=== PATIENT | female | born 2000 | race Caucasian/White ===

== ENCOUNTER 2023-10-16 19:58 | Emergency (ER) | payer SELFPAY ==
[2023-10-16 20:07] VITALS: BP 146/85; PULSE 105; O2SAT 99; BMI 36.4
--- NOTE | 2023-10-16 20:22 | ED.GENADUL1 ---
HPI HPI - General Adult General Chief complaint: Nausea/Vomiting/Diarrhea Stated complaint: VOMITTING, PINK DISCHARGE Time Seen by Provider: 10/16/23 20:01 Source: patient Mode of arrival: walk-in Limitations: language barrier History of Present Illness HPI narrative: Patient is a Korean-speaking 23-year-old female who presents to the emergency department with concern for nausea and vomiting over the last 5 days. She states she has had intermittent vomiting with no diarrhea or urinary symptoms. She states she feels lightheaded on standing but has had no sensation of spinning, no visual loss or upper respiratory symptoms. She denies headache, syncope. She has had no fevers. She denies abdominal pain or pelvic pain. She states she was also concerned because last night she noted a small amount of vaginal discharge that was pink-tinged and then brown-tinged. She is not concerned for . She denies any concern for STD exposure. She has no flank or back pain. Related Data Previous Rx's ?Medication ?Instructions ?Recorded cephalexin 500 mg capsule 500 mg PO Q8H 7 days #21 caps 10/16/23 ondansetron 4 mg disintegrating 4 mg PO Q6H PRN nausea and 10/16/23 tablet vomiting #12 tabs Allergies Allergy/AdvReac Type Severity Reaction Status Date / Time No Known Drug Allergies Allergy Verified 10/16/23 20:06 Opioid HPI Opioid Management Most Recent Opioid Data: No Data to Display Review of Systems ROS Constitutional Denies: fever or chills Ears, nose, mouth, and throat Denies: throat pain or nasal congestion Cardiovascular Denies: chest pain Respiratory Denies: shortness of breath or cough Gastrointestinal Reports: nausea and vomiting; Denies: abdominal pain or diarrhea Genitourinary Reports: vaginal discharge; Denies: painful urination, urinary frequency or pelvic pain Musculoskeletal Denies: back pain Integumentary/Breast Denies: rash Neurological Denies: headache Hematologic/Lymphatic Denies: easy bruising or easy bleeding Exam Narrative Exam Narrative: Gen.: Awake, alert, in no distress Head: Normocephalic, atraumatic ENT: Moist mucous membranes Respiratory: No respiratory distress, lungs clear bilaterally Cardio: Regular rate and rhythm Gastrointestinal: Abdomen is soft, nondistended and nontender to palpation Extremities: Moves extremities equally Psych: Normal mood and affect Neuro: No focal neuro deficit Skin: Warm, dry, intact Constitutional Vital Signs, click to edit/add: Last Vital Signs Pulse 105 H 10/16/23 20:07 Resp 16 10/16/23 20:07 BP 146/85 H 10/16/23 20:07 Pulse Ox 99 10/16/23 20:07 O2 Del Method Room Air 10/16/23 20:07 Course Vital Signs Vital signs: Vital Signs Pulse Rate 105 H 10/16/23 20:07 Respiratory Rate 16 10/16/23 20:07 Blood Pressure 146/85 H 10/16/23 20:07 Pulse Oximetry 99 10/16/23 20:07 Oxygen Delivery Method Room Air 10/16/23 20:07 Pulse Rate 105 H 10/16/23 20:07 Respiratory Rate 16 10/16/23 20:07 Blood Pressure 146/85 H 10/16/23 20:07 Pulse Oximetry 99 10/16/23 20:07 Oxygen Delivery Method Room Air 10/16/23 20:07 Medical Decision Making MDM Narrative Medical decision making narrative: Patient ambulates to the bathroom with a steady gait. Her initial interview, as well as my interview and physical exam were conducted with Korean speaking hospital plastic surgery coordinator over an iPad. Patient was treated with IV fluids, Zofran. She has no complaints of pain in the ER. Her lab studies show mild urinary tract infection with normal lactic acid. She does have ketones in her urine. She was encouraged to increase fluids, she is started on Keflex and Zofran for home. Follow-up with PCP and return to the ER if symptoms change or worsen. Medical Records Medical records reviewed: Yes I reviewed the patient's medical records Lab Data Lab results reviewed: Yes I reviewed the patient's lab results Labs: Lab Results 10/16/23 10/16/23 Range/Units 20:25 20:26 WBC 13.4 H (4.0-11.0) 10^3/uL RBC 4.54 (4.20-5.40) 10^6/uL Hgb 12.3 (12.0-16.0) g/dL Hct 38.3 (36.0-48.0) % MCV 84.4 (81.0-99.0) fL MCH 27.1 (26.7-34.0) pg MCHC 32.1 (29.9-35.2) g/dL RDW 14.3 (11.0-15.0) % Plt Count 342 (150-450) 10^3/uL MPV 11.0 (9.5-13.5) fL Neut % (Auto) 76.2 H (43.0-75.0) % Lymph % (Auto) 17.0 L (20.5-60.0) % [place] % (Auto) 5.9 (1.7-12.0) % Eos % (Auto) 0.4 L (0.9-7.0) % Baso % (Auto) 0.2 (0.2-2.0) % Neut # (Auto) 10.2 H (1.4-6.5) 10^3/uL Lymph # (Auto) 2.3 (1.2-3.8) 10^3/uL [place] # (Auto) 0.8 (0.3-0.8) 10^3/uL Eos # (Auto) 0.1 (0.0-0.7) 10^3/uL Baso # (Auto) 0.0 (0.0-0.1) 10^3/uL Abs Immat Gran (auto) 0.04 H (0.00-0.03) 10^3/uL Imm/Tot Granulo (auto) 0.3 (0.0-0.5) % Sodium 139 (136-145) mmol/L Potassium 3.5 (3.5-5.1) mmol/L Chloride 104 (98-107) mmol/L Carbon Dioxide 24.3 (21.0-32.0) mmol/L Anion Gap 14.2 BUN 8.0 (7.0-18.0) mg/dL Creatinine 0.86 (0.55-1.02) mg/dL Est GFR ( Amer) >60 (>=60) Est GFR (Non-Af Amer) >60 (>=60) BUN/Creatinine Ratio 9.3 Glucose 93 (74-106) mg/dL Lactate 0.9 (0.4-2.0) mmol/L Calcium 8.8 (8.5-10.1) mg/dL Total Bilirubin 0.4 (0.2-1.0) mg/dL AST 17 (15-37) U/L ALT 25 (14-59) U/L Alkaline Phosphatase 125 H (46-116) U/L Total Protein 7.1 (6.4-8.2) g/dL Albumin 3.6 (3.4-5.0) g/dL Globulin 3.5 g/dL Albumin/Globulin Ratio 1.0 Serum HCG, Qual Negative (NEGATIVE) Urine Color Lt. yellow (YELLOW) Urine Clarity Clear (CLEAR) Urine pH 6.0 (5.0-9.0) Ur Specific Joes 1.025 (1.005-1.025) Urine Protein Negative (NEG/TRACE) mg/dL Urine Glucose (UA) Negative (NEGATIVE) mg/dL Urine Ketones 15 A (NEGATIVE) mg/dL Urine Occult Blood Moderate A (NEGATIVE) Urine Nitrite Negative (NEGATIVE) Urine Bilirubin Negative (NEGATIVE) Urine Urobilinogen 1.0 (0.2-1.0) EU/dL Ur Leukocyte Esterase Small A (NEGATIVE) Urine RBC 10-20 A (0-2) #/HPF Urine WBC 10-20 A (NONE SEEN) #/HPF Ur Squamous Epith Cells Moderate A (NONE/RARE) #/LPF Urine Crystals None seen (None Seen) #/HPF Urine Bacteria None seen (NONE SEEN) #/HPF Urine Casts None seen (NONE SEEN) #/LPF Urine Mucus Moderate A (NONE SEEN) Ur Culture Indicated? Yes Discharge Plan Discharge Stand Alone Forms: Portal Instructions Chief Complaint: Nausea/Vomiting/Diarrhea Clinical Impression: Urinary tract infection, Dehydration Patient Disposition: Home, Self-Care Time of Disposition Decision: 21:03 Condition: Good Prescriptions / Home Meds: New cephalexin 500 mg capsule 500 mg PO Q8H 7 Days Qty: 21 0RF ondansetron 4 mg tablet,disintegrating 4 mg PO Q6H PRN (Reason: nausea and vomiting) Qty: 12 0RF Print Language: Korean Instructions: Urinary Tract Infection in Women (ED) Referrals: Physician,Non-Staff, [Primary Care Provider] - 1 week Discharge Date/Time: 10/16/23 21:23
[2023-10-16] MEDS: 0.9 % SODIUM CHLORIDE 1,000 ML 999 ML IV (20:33)
[2023-10-16] MEDS: ONDANSETRON PF 4 MG/2 ML VIAL IV (20:34)
[2023-10-16 20:35] LABS: Basophils Percent Auto 0.2 % (0.2-2.0); Eosinophils Absolute Auto 0.1 10^3/uL (0.0-0.7); Eosinophils Percent Auto 0.4 % (0.9-7.0); Hematocrit 38.3 % (36.0-48.0); Hemoglobin 12.3 g/dL (12.0-16.0); Immature Granulocytes Abs Auto 0.04 10^3/uL (0.00-0.03); Immature Granulocytes Pct Auto 0.3 % (0.0-0.5); Lymphocytes Absolute Auto 2.3 10^3/uL (1.2-3.8); Mean Corpuscular HGB Conc 32.1 g/dL (29.9-35.2); Mean Corpuscular Hemoglobin 27.1 pg (26.7-34.0); Mean Corpuscular Volume 84.4 fL (81.0-99.0); Monocytes Absolute Auto 0.8 10^3/uL (0.3-0.8); Monocytes Percent Auto 5.9 % (1.7-12.0); Neutrophils Absolute Auto 10.2 10^3/uL (1.4-6.5); Neutrophils Percent Auto 76.2 % (43.0-75.0); Platelet Count 342 10^3/uL (150-450); Red Blood Count 4.54 10^6/uL (4.20-5.40); Red Cell Distribution Width 14.3 % (11.0-15.0); White Blood Count 13.4 10^3/uL (4.0-11.0)
[2023-10-16 20:36] LABS: Bilirubin Urine NEGATIVE (NEGATIVE); Blood Urine MODERATE (NEGATIVE); Clarity Urine CLEAR (CLEAR); Color Urine LT. YELLOW (YELLOW); Glucose Urine UA NEGATIVE (NEGATIVE); Ketones Urine 15 mg/dL (NEGATIVE); Leukocyte Esterase Urine SMALL (NEGATIVE); Nitrite Urine NEGATIVE (NEGATIVE); Protein Urine NEGATIVE (NEG/TRACE); Specific Gravity Urine 1.025 (1.005-1.025)
[2023-10-16 20:38] LABS: Urine Microscopic Indicated YES
[2023-10-16 20:44] LABS: Bacteria Urine NONE SEEN #/HPF (NONE SEEN); Cast Seen? NONE SEEN #/LPF (NONE SEEN); Crystals Seen? None Seen #/HPF (None Seen); Mucus Urine MODERATE (NONE SEEN); Squamous Epithelial Cell Urine MODERATE #/LPF (NONE/RARE); Urine Culture Indicated YES
[2023-10-16 20:45] LABS: HCG Qualitative NEGATIVE (NEGATIVE); Internal Control Within Normal Limits
[2023-10-16 20:53] LABS: Lactate/Lactic Acid 0.9 mmol/L (0.4-2.0)
[2023-10-16 20:59] LABS: Alanine Aminotransferase 25 U/L (14-59); Albumin Level 3.6 g/dL (3.4-5.0); Alkaline Phosphatase 125 U/L (46-116); Anion Gap 14.2; Aspartate Amino Transferase 17 U/L (15-37); BUN Creatinine Ratio 9.3; Bilirubin Total 0.4 mg/dL (0.2-1.0); Calcium 8.8 mg/dL (8.5-10.1); Carbon Dioxide 24.3 mmol/L (21.0-32.0); Chloride 104 mmol/L (98-107); Estimated GFR (African America >60 (>=60); Estimated GFR (Non-African Ame >60 (>=60); Globulin 3.5 g/dL; Glucose 93 mg/dL (74-106); Potassium 3.5 mmol/L (3.5-5.1); Sodium 139 mmol/L (136-145); Total Protein 7.1 g/dL (6.4-8.2)
[2023-10-16] MEDS: CEPHALEXIN 500 MG CAPSULE PO (21:13)
[2023-10-20 20:08] LABS: Neisseria gonorrhoeae, NAA Negative (Negative)
== END 2023-10-16 21:23 | disposition home or self-care (01) ==
PROVIDERS: Physician Assistant; Emergency Provider Internal Medicine
DX: E86.0 Dehydration (principal); N39.0 Urinary tract infection, site not specified
CPT/HCPCS: 36415; 80053; 81001; 83605; 84703; 85025; 87086; 87491; 87591; 96361; 96374; 99284; J2405

== ENCOUNTER 2023-11-29 15:06 | Emergency (ER) | payer SELFPAY ==
[2023-11-29 15:16] VITALS: BP 139/85; PULSE 69; TEMP 36.8; O2SAT 98; BMI 29.9
[2023-11-29] MEDS: ADACEL DIPH,PERTUSS(ACELL),TET VAC/PF 0.5 ML ADULT SYRINGE IM (15:35)
--- NOTE | 2023-11-29 15:42 | ED_ITS ---
HPI - Female Genitourinary General Chief complaint: Urogenital-Female Stated complaint: UTI, Nausea/Vomiting, Laceration to hand Time Seen by Provider: 11/29/23 15:19 Mode of arrival: walk-in Limitations: no limitations History of Present Illness HPI Narrative: 23-year-old female presented to the emergency department for dysuria. She believes she has a UTI and she is worried she might be as well. She also cut the palm of her left hand cutting chicken at her home today with a kitchen knife. It has been more than 10 years since she has had a tetanus shot. No weakness or numbness. Related Data Previous Rx's ?Medication ?Instructions ?Recorded cephalexin 500 mg capsule 500 mg PO TID 7 days #21 caps 11/29/23 Allergies Allergy/AdvReac Type Severity Reaction Status Date / Time No Known Drug Allergies Allergy Verified 10/16/23 20:06 Review of Systems ROS Narrative A ten point review of systems is negative except as noted above. Exam Narrative Exam Narrative: Nurses note and vital signs reviewed and patient is not hypoxic. General: The patient appears well and in no apparent distress. Patient is resting comfortably on cart. Skin: Warm, dry, no pallor noted. There is no rash noted. Head: Normocephalic, atraumatic Eye: Normal conjunctiva, no drainage Ears, Nose, Mouth, and Throat: oral mucosa is moist. Nares patent. Cardiovascular: Regular Rate and Rhythm Respiratory: Patient is in no distress, no accessory muscle use, lungs are clear to auscultation, no wheezing, rales or rhonchi Back: non-tender GI: Soft and nontender Musculoskeletal: There is a small skin avulsion on the palm of the left hand. There is no laceration. Fingers have full range of motion. No other wounds are present. Neurological: Awake and alert. Fingers have full range of motion. Psychiatric: Cooperative Constitutional Vital Signs, click to edit/add: Last Vital Signs Temp 98.3 F 11/29/23 15:16 Pulse 69 11/29/23 15:16 Resp 16 11/29/23 15:16 BP 139/85 11/29/23 15:16 Pulse Ox 98 11/29/23 15:16 O2 Del Method Room Air 11/29/23 15:16 Course Vital Signs Vital signs: Vital Signs Temperature 98.3 F 11/29/23 15:16 Pulse Rate 69 11/29/23 15:16 Respiratory Rate 16 11/29/23 15:16 Blood Pressure 139/85 11/29/23 15:16 Pulse Oximetry 98 11/29/23 15:16 Oxygen Delivery Method Room Air 11/29/23 15:16 Temperature 98.3 F 11/29/23 15:16 Pulse Rate 69 11/29/23 15:16 Respiratory Rate 16 11/29/23 15:16 Blood Pressure 139/85 11/29/23 15:16 Pulse Oximetry 98 11/29/23 15:16 Oxygen Delivery Method Room Air 11/29/23 15:16 MDM - Female Genitourinary MDM Narrative Medical decision making narrative: Urinary tract infection is identified and she was started on Keflex here and prescribed same. She is referred to obstetrics for appropriate follow-up since she is . Treatment diagnosis and follow-up were discussed with the patient Differential Diagnosis Differential diagnosis: Likely urinary tract infection and other () Lab Data Attestation: I reviewed the patient's lab results. Labs: Lab Results 11/29/23 Range/Units 15:15 Urine Color Lt. yellow (YELLOW) Urine Clarity Clear (CLEAR) Urine pH 6.0 (5.0-9.0) Ur Specific [place] 1.025 (1.005-1.025) Urine Protein Trace (NEG/TRACE) mg/dL Urine Glucose (UA) Negative (NEGATIVE) mg/dL Urine Ketones Negative (NEGATIVE) mg/dL Urine Occult Blood Trace-i (NEGATIVE) Urine Nitrite Negative (NEGATIVE) Urine Bilirubin Negative (NEGATIVE) Urine Urobilinogen 1.0 (0.2-1.0) EU/dL Ur Leukocyte Esterase Moderate A (NEGATIVE) Urine RBC 0-2 (0-2) #/HPF Urine WBC >100 A (NONE SEEN) #/HPF Ur Squamous Epith Cells Many A (NONE/RARE) #/LPF Urine Crystals None seen (None Seen) #/HPF Urine Bacteria Large A (NONE SEEN) #/HPF Urine Casts None seen (NONE SEEN) #/LPF Urine Mucus None seen (NONE SEEN) Urine HCG, Qual Positive A (NEGATIVE) Discharge Plan Discharge Stand Alone Forms: Portal Instructions Chief Complaint: Urogenital-Female Clinical Impression: Urinary tract infection, Patient Disposition: Home, Self-Care Time of Disposition Decision: 16:28 Condition: Good Mode of Transportation: Private Vehicle Prescriptions / Home Meds: New cephalexin 500 mg capsule 500 mg PO TID 7 Days Qty: 21 0RF Print Language: [place] Islander Instructions: (ED), Urinary Tract Infection in (ED) Referrals: Physician,Non-Staff, MD [Primary Care Provider] - 1 week
[2023-11-29 16:11] LABS: Bilirubin Urine NEGATIVE (NEGATIVE); Blood Urine TRACE-I (NEGATIVE); Clarity Urine CLEAR (CLEAR); Color Urine LT. YELLOW (YELLOW); Glucose Urine UA NEGATIVE (NEGATIVE); Ketones Urine NEGATIVE (NEGATIVE); Leukocyte Esterase Urine MODERATE (NEGATIVE); Nitrite Urine NEGATIVE (NEGATIVE); Protein Urine TRACE mg/dL (NEG/TRACE); Specific Gravity Urine 1.025 (1.005-1.025)
[2023-11-29 16:23] LABS: Bacteria Urine LARGE #/HPF (NONE SEEN); HCG Qualitative Urine* POSITIVE (NEGATIVE); Internal Control Within Normal Limits; WBC Urine >100 #/HPF (NONE SEEN)
[2023-11-29 16:25] LABS: Cast Seen? NONE SEEN #/LPF (NONE SEEN); Crystals Seen? None Seen #/HPF (None Seen); Mucus Urine NONE SEEN (NONE SEEN); RBC Urine 0-2 #/HPF (0-2); Squamous Epithelial Cell Urine MANY #/LPF (NONE/RARE)
[2023-11-29] MEDS: CEPHALEXIN 500 MG CAPSULE PO (17:01)
== END 2023-11-29 17:03 | disposition home or self-care (01) ==
PROVIDERS: Emergency Provider Emergency Medicine
DX: O23.40 Unspecified infection of urinary tract in pregnancy, unspecified trimester (principal); N39.0 Urinary tract infection, site not specified; Z3A.00 Weeks of gestation of pregnancy not specified; Z23 Encounter for immunization
CPT/HCPCS: 81001; 84703; 90471; 90715; 99284

== ENCOUNTER 2023-12-23 04:40 | Emergency (ER) | payer OTHER, SELFPAY ==
[2023-12-23 04:36] VITALS: BP 124/70; PULSE 76; O2SAT 99
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
== END 2023-12-23 06:48 | disposition home or self-care (01) ==
PROVIDERS: Emergency Provider Emergency Medicine
DX: O9A.211 Injury, poisoning and certain other consequences of external causes complicating pregnancy, first trimester (principal); S30.1XXA Contusion of abdominal wall, initial encounter; Z3A.09 9 weeks gestation of pregnancy; Y04.8XXA Assault by other bodily force, initial encounter
CPT/HCPCS: 76801; 99284

== ENCOUNTER 2024-01-01 09:05 | Outpatient (OUT) | payer OTHER, SELFPAY ==
--- NOTE | 2024-01-01 09:10 | US_ITS ---
[address] [address] Patient Name: SUJATHA RAMIREZ MRN: [id number] date: 2000 Sex: F Assigned Patient Location: US Current Patient Location: Accession/Order Number: [id number] Exam Date: 01/01/2024 09:20 Report Date: 01/05/2024 04:21 At the request of: LAMINE PEPPER Procedure: US OB transvaginal EXAMINATION: US OB transvaginal HISTORY: Missed Menses N92.6 COMPARISON: Ultrasound OB 12/23/2023 FINDINGS: GESTATIONAL SAC: Present and normal appearing. YOLK SAC: Absent. POLE: Present and normal appearing. CARDIAC: 163 bpm UTERUS: Normal size and appearance. OVARIES: Right: Normal. Left: Not seen. CERVIX: Not measured. CUL-DE-SAC: Normal. OTHER: None. AGE BY LMP: 10 weeks 6 days MATT BY LMP: 07/23/2024 AGE BY US CRL: 11 weeks 2 days MATT BY US CRL: 07/20/2024 US/US OB transvaginal IMPRESSION: 1. Single live intrauterine . Electronically authenticated by: ANGELLA WALDEN Date: 01/05/2024 04:21
== END 2024-01-01 09:06 | disposition home or self-care (01) ==
LOC: US 09:05
PROVIDERS: Visit Provider Obstetrics & Gynecology
DX: Z34.91 Encounter for supervision of normal pregnancy, unspecified, first trimester (principal); Z3A.11 11 weeks gestation of pregnancy; N92.6 Irregular menstruation, unspecified
CPT/HCPCS: 76817

== ENCOUNTER 2024-01-08 09:27 | Outpatient (OUT) | payer OTHER, SELFPAY ==
[2024-01-08 10:28] LABS: BOX Test Sent Out Y
[2024-01-08 10:33] LABS: Basophils Percent Auto 0.4 % (0.2-2.0); Eosinophils Absolute Auto 0.1 10^3/uL (0.0-0.7); Eosinophils Percent Auto 1.1 % (0.9-7.0); Hematocrit 38.3 % (36.0-48.0); Hemoglobin 12.7 g/dL (12.0-16.0); Immature Granulocytes Abs Auto 0.02 10^3/uL (0.00-0.03); Immature Granulocytes Pct Auto 0.3 % (0.0-0.5); Lymphocytes Absolute Auto 1.6 10^3/uL (1.2-3.8); Lymphocytes Percent Auto 20.3 % (20.5-60.0); Mean Corpuscular HGB Conc 33.2 g/dL (29.9-35.2); Mean Corpuscular Volume 84.4 fL (81.0-99.0); Mean Platelet Volume 11.4 fL (9.5-13.5); Monocytes Absolute Auto 0.4 10^3/uL (0.3-0.8); Monocytes Percent Auto 5.3 % (1.7-12.0); Neutrophils Absolute Auto 5.8 10^3/uL (1.4-6.5); Neutrophils Percent Auto 72.6 % (43.0-75.0); Platelet Count 251 10^3/uL (150-450); Red Blood Count 4.54 10^6/uL (4.20-5.40); Red Cell Distribution Width 14.6 % (11.0-15.0)
[2024-01-08 11:05] LABS: Estimated Average Glucose 97 mg/dL
[2024-01-09 06:13] LABS: HCV Ab Non Reactive (Non Reactive)
[2024-01-09 07:12] LABS: HIV Ab/p24 Ag Screen Non Reactive (Non Reactive); Rubella Antibodies, IgG 1.77 index (Immune >0.99)
[2024-01-09 08:12] LABS: HBsAg Screen Negative (Negative)
[2024-01-09 12:09] LABS: Rapid Plasma Reagin, Quant Non Reactive titer (NonRea<1:1)
== END 2024-01-08 09:28 | disposition home or self-care (01) ==
LOC: LAB 09:30
PROVIDERS: Visit Provider Obstetrics & Gynecology
DX: N92.6 Irregular menstruation, unspecified (principal); Z36.0 Encounter for antenatal screening for chromosomal anomalies
CPT/HCPCS: 36415; 83036; 85025; 86592; 86762; 86803; 86850; 86900; 86901; 87086; 87340; 87389

== ENCOUNTER 2024-01-28 19:33 | Outpatient (REF) | payer OTHER, SELFPAY | END 2024-01-28 19:34 | disposition home or self-care (01) | LOC: LAB 19:33 | PROVIDERS: Visit Provider Obstetrics & Gynecology | DX: Z01.419 Encounter for gynecological examination (general) (routine) without abnormal findings (principal) | CPT/HCPCS: 88175 ==

== ENCOUNTER 2024-02-22 13:20 | Emergency (ER) | payer OTHER, SELFPAY ==
[2024-02-22 13:23] VITALS: BP 126/75; PULSE 82; TEMP 36.7; O2SAT 99; BMI 24.9
--- NOTE | 2024-02-22 13:38 | ED_ITS ---
HPI HPI - General Adult General Chief complaint: Skin/Abscess/Foreign Body Stated complaint: LOWER EXTREMITY INJURY, LEFT Time Seen by Provider: 02/22/24 13:22 Source: patient Mode of arrival: walk-in Limitations: language barrier History of Present Illness HPI narrative: Is a 23-year-old female at 17 weeks who presents to the ER for a laceration to the left posterior leg that occurred last night. She states she caught herself with a blade. She is noted to have a small superficial laceration that is gapped approximately 1 cm on the posterior left calf. There is no deep subcutaneous tissue exposure. No active bleeding. No other associated injury or drainage. Patient is unaware of her last tetanus although she was noted to have been to this emergency department 3 months ago and her tetanus was updated at that time. No medications prior to arrival. The laceration occurred approximately 16 hours ago. Related Data Previous Rx's ?Medication ?Instructions ?Recorded cephalexin 500 mg capsule 500 mg PO TID 7 days #21 caps 11/29/23 cephalexin 500 mg capsule 500 mg PO Q8H 7 days #21 caps 02/22/24 Allergies Allergy/AdvReac Type Severity Reaction Status Date / Time No Known Drug Allergies Allergy Verified 12/23/23 04:39 Opioid HPI Opioid Management Most Recent Opioid Data: No Data to Display Review of Systems ROS Constitutional Denies: fever or chills Ears, nose, mouth, and throat Denies: throat pain Respiratory Denies: shortness of breath Gastrointestinal Denies: nausea or vomiting Integumentary/Breast Denies: rash, redness or skin pain Hematologic/Lymphatic Denies: easy bruising or easy bleeding Exam Narrative Exam Narrative: Gen.: Awake, alert, in no distress Head: Normocephalic, atraumatic ENT: Moist mucous membranes Respiratory: No respiratory distress Extremities: Moves extremities equally, 1.5 x 1 cm superficial laceration to the left posterior calf. No deep subcutaneous tissue or active bleeding. Psych: Normal mood and affect Neuro: No focal neuro deficit Skin: Warm, dry Constitutional Vital Signs, click to edit/add: Last Vital Signs Temp 98.1 F 02/22/24 13:23 Pulse 82 02/22/24 13:23 Resp 16 02/22/24 13:23 BP 126/75 02/22/24 13:23 Pulse Ox 99 02/22/24 13:23 O2 Del Method Room Air 02/22/24 13:23 Course Vital Signs Vital signs: Vital Signs Temperature 98.1 F 02/22/24 13:23 Pulse Rate 82 02/22/24 13:23 Respiratory Rate 16 02/22/24 13:23 Blood Pressure 126/75 02/22/24 13:23 Pulse Oximetry 99 02/22/24 13:23 Oxygen Delivery Method Room Air 02/22/24 13:23 Temperature 98.1 F 02/22/24 13:23 Pulse Rate 82 02/22/24 13:23 Respiratory Rate 16 02/22/24 13:23 Blood Pressure 126/75 02/22/24 13:23 Pulse Oximetry 99 02/22/24 13:23 Oxygen Delivery Method Room Air 02/22/24 13:23 Medical Decision Making MDM Narrative Medical decision making narrative: Laceration is 16 hours old, no deep laceration requiring sutures, patient was made aware that we will not suture the laceration but she will be placed on antibiotics. The area was cleansed and dressed with bacitracin and she remains neurovascularly intact. She has no concerns. Her tetanus was updated several months ago. Her history, physical and discharge instructions were obtained with Libyan-speaking interpreting service. Follow-up with PCP and return to the ER if symptoms change or worsen SUPERVISED APC VISIT, PHYSICIAN ATTESTATION: Based on the medical record the care appears appropriate. ? Medical Records Medical records reviewed: Yes I reviewed the patient's medical records Discharge Plan Discharge Chief Complaint: Skin/Abscess/Foreign Body Clinical Impression: Laceration of left leg Patient Disposition: Home, Self-Care Time of Disposition Decision: 13:36 Condition: Good Mode of Transportation: Private Vehicle Prescriptions / Home Meds: New cephalexin 500 mg capsule 500 mg PO Q8H 7 Days Qty: 21 0RF No Action cephalexin 500 mg capsule 500 mg PO TID 7 Days Qty: 21 0RF Print Language: Libyan Instructions: Laceration Without Closure (ED) Referrals: Physician,Non-Staff, MD [Primary Care Provider] - 1 week Discharge Date/Time: 02/22/24 13:48
[2024-02-22] MEDS: BACITRACIN 0.9 GM PACKET 1 PACKET TOPICAL (13:47)
== END 2024-02-22 13:48 | disposition home or self-care (01) ==
PROVIDERS: Emergency Provider Emergency Medicine
DX: S81.812A Laceration without foreign body, left lower leg, initial encounter (principal); W26.8XXA Contact with other sharp object(s), not elsewhere classified, initial encounter
CPT/HCPCS: 99283

== ENCOUNTER 2024-04-05 09:43 | Outpatient (OUT) | payer OTHER, SELFPAY ==
[2024-04-05 11:26] LABS: Basophils Percent Auto 0.2 % (0.2-2.0); Eosinophils Absolute Auto 0.2 10^3/uL (0.0-0.7); Eosinophils Percent Auto 1.5 % (0.9-7.0); Hematocrit 35.5 % (36.0-48.0); Hemoglobin 11.9 g/dL (12.0-16.0); Immature Granulocytes Abs Auto 0.04 10^3/uL (0.00-0.03); Immature Granulocytes Pct Auto 0.3 % (0.0-0.5); Lymphocytes Absolute Auto 1.5 10^3/uL (1.2-3.8); Mean Corpuscular HGB Conc 33.5 g/dL (29.9-35.2); Mean Corpuscular Hemoglobin 29.8 pg (26.7-34.0); Monocytes Absolute Auto 0.7 10^3/uL (0.3-0.8); Monocytes Percent Auto 5.7 % (1.7-12.0); Neutrophils Absolute Auto 9.2 10^3/uL (1.4-6.5); Neutrophils Percent Auto 79.3 % (43.0-75.0); Platelet Count 229 10^3/uL (150-450); Red Blood Count 3.99 10^6/uL (4.20-5.40); Red Cell Distribution Width 13.6 % (11.0-15.0); White Blood Count 11.6 10^3/uL (4.0-11.0)
[2024-04-05 12:01] LABS: Glucose 1 Hour 93 mg/dL (<130)
== END 2024-04-05 09:44 | disposition home or self-care (01) ==
PROVIDERS: Visit Provider Obstetrics & Gynecology
DX: Z13.1 Encounter for screening for diabetes mellitus (principal)
CPT/HCPCS: 36415; 82950; 85025

== ENCOUNTER 2024-04-05 10:22 | Outpatient (OUT) | payer OTHER, SELFPAY ==
--- NOTE | 2024-04-05 | US_ITS ---
[address] [address] Patient Name: SUJATHA RAMIREZ MRN: [id number] date: 2000 Sex: F Assigned Patient Location: US Current Patient Location: US Accession/Order Number: [id number] Exam Date: 04/05/2024 10:26 Report Date: 04/05/2024 12:36 At the request of: ROSA VIDAL Procedure: US OB cervical length EXAMINATION: US OB anatomy, US OB cervical length HISTORY: Screening, for anatomic survey, Z36.89 COMPARISON: No relevant comparison available. TECHNIQUE: Transabdominal sonographic examination was performed for obstetrical and evaluation. FINDINGS: Number: 1 Heart Rate: 139.18 bpm H.B. /min Amniotic Fluid Volume: Subjectively normal Placental Location: POSTERIOR, grade 0, placental edge 3.6 cm from the cervical os Cervix Length: 4.29 cm , closed Normal anatomy: Lateral ventricles, cerebellum, posterior fossa, nose, lips, orbits, 4 chamber heart, rvot, lvot, diaphragm, stomach, kidneys, abd cord insertion, bladder, umbilical arteries, 3 vessel cord, spine, extremities BIOMETRY: BPD: 6.04 cm; 24w4d; 66.40 % HC: 22.64 cm; 24w5d; 57.80 % AC: 20.76 cm; 25w2d; 80.80 % FL: 4.33 cm; 24w1d; 42.90 % EFW:736.67 g; 78.40 %, 1 lb 10 oz FL/AC: 20.84 FL/BPD: 71.58 HC/AC: 1.09 GESTATIONAL AGE: Age by EDC: 24w0d MATT by EDC: 2024-07-26 Age by current US: 24w5d MATT by current US: 2024-07-21 US/US OB cervical length IMPRESSION: Normal anatomy scan *Reference: [facility] Practice Guideline for the performance of Obstetric Ultrasound Examinations, February 01, 2007. Electronically authenticated by: MELINDA TAYLOR Date: 04/05/2024 12:36
--- NOTE | 2024-04-05 10:25 | US_ITS ---
[address] [address] Patient Name: SUJATHA RAMIREZ MRN: [id number] date: 2000 Sex: F Assigned Patient Location: US Current Patient Location: US Accession/Order Number: [id number] Exam Date: 04/05/2024 10:26 Report Date: 04/05/2024 12:36 At the request of: ROSA VIDAL Procedure: US OB anatomy EXAMINATION: US OB anatomy, US OB cervical length HISTORY: Screening, for anatomic survey, Z36.89 COMPARISON: No relevant comparison available. TECHNIQUE: Transabdominal sonographic examination was performed for obstetrical and evaluation. FINDINGS: Number: 1 Heart Rate: 139.18 bpm H.B. /min Amniotic Fluid Volume: Subjectively normal Placental Location: POSTERIOR, grade 0, placental edge 3.6 cm from the cervical os Cervix Length: 4.29 cm , closed Normal anatomy: Lateral ventricles, cerebellum, posterior fossa, nose, lips, orbits, 4 chamber heart, rvot, lvot, diaphragm, stomach, kidneys, abd cord insertion, bladder, umbilical arteries, 3 vessel cord, spine, extremities BIOMETRY: BPD: 6.04 cm; 24w4d; 66.40 % HC: 22.64 cm; 24w5d; 57.80 % AC: 20.76 cm; 25w2d; 80.80 % FL: 4.33 cm; 24w1d; 42.90 % EFW:736.67 g; 78.40 %, 1 lb 10 oz FL/AC: 20.84 FL/BPD: 71.58 HC/AC: 1.09 GESTATIONAL AGE: Age by EDC: 24w0d MATT by EDC: 2024-07-26 Age by current US: 24w5d MATT by current US: 2024-07-21 US/US OB anatomy IMPRESSION: Normal anatomy scan *Reference: [facility] Practice Guideline for the performance of Obstetric Ultrasound Examinations, February 01, 2007. Electronically authenticated by: MELINDA TAYLOR Date: 04/05/2024 12:36
== END 2024-04-05 10:23 | disposition home or self-care (01) ==
LOC: US 10:22
PROVIDERS: Visit Provider Physician Assistant
DX: Z36.89 Encounter for other specified antenatal screening (principal); Z3A.24 24 weeks gestation of pregnancy
CPT/HCPCS: 36415; 76805; 76817; 82950; 85025

== ENCOUNTER 2024-05-06 17:20 | Observation (INO) | payer SELFPAY ==
[2024-05-06 18:26] LABS: Bilirubin Urine NEGATIVE (NEGATIVE); Blood Urine NEGATIVE (NEGATIVE); Clarity Urine CLEAR (CLEAR); Color Urine LT. YELLOW (YELLOW); Glucose Urine UA NEGATIVE (NEGATIVE); Ketones Urine NEGATIVE (NEGATIVE); Leukocyte Esterase Urine MODERATE (NEGATIVE); Nitrite Urine NEGATIVE (NEGATIVE); Protein Urine NEGATIVE (NEG/TRACE); Specific Gravity Urine 1.015 (1.005-1.025)
[2024-05-06 18:28] LABS: Urine Microscopic Indicated YES
--- NOTE | 2024-05-06 18:38 | US_ITS ---
[place] [address] Patient Name: SUJATHA RAMIREZ MRN: [id number] date: 2000 Sex: F Assigned Patient Location: [facility] Current Patient Location: Accession/Order Number: [id number] Exam Date: 05/06/2024 18:47 Report Date: 05/06/2024 21:15 At the request of: LAMINE PEPPER Procedure: US OB placenta EXAMINATION: US OB placenta, US OB cervical length HISTORY: cramping ; discharge COMPARISON: Ultrasound OB anatomy 04/05/2024 FINDINGS: PLACENTA: Posterior, grade 0. No abruption or subchorionic hematoma. CERVIX LENGTH: 3.1 cm; closed. HEART RATE: 138 bpm OTHER: None. US/US OB placenta IMPRESSION: 1. Single live intrauterine . 2. Closed cervix 3.1 cm in length. 3. Unremarkable placenta. Electronically authenticated by: ANGELLA WALDEN Date: 05/06/2024 21:15
--- NOTE | 2024-05-06 18:38 | US_ITS ---
[place] [address] Patient Name: SUJATHA RAMIREZ MRN: [id number] date: 2000 Sex: F Assigned Patient Location: [facility] Current Patient Location: Accession/Order Number: [id number] Exam Date: 05/06/2024 18:47 Report Date: 05/06/2024 21:15 At the request of: LAMINE PEPPER Procedure: US OB cervical length EXAMINATION: US OB placenta, US OB cervical length HISTORY: cramping ; discharge COMPARISON: Ultrasound OB anatomy 04/05/2024 FINDINGS: PLACENTA: Posterior, grade 0. No abruption or subchorionic hematoma. CERVIX LENGTH: 3.1 cm; closed. HEART RATE: 138 bpm OTHER: None. US/US OB cervical length IMPRESSION: 1. Single live intrauterine . 2. Closed cervix 3.1 cm in length. 3. Unremarkable placenta. Electronically authenticated by: ANGELLA WALDEN Date: 05/06/2024 21:15
[2024-05-06 18:42] LABS: Bacteria Urine SMALL #/HPF (NONE SEEN); Cast Seen? NONE SEEN #/LPF (NONE SEEN); Crystals Seen? None Seen #/HPF (None Seen); Mucus Urine TRACE (NONE SEEN); RBC Urine 0-2 #/HPF (0-2); Squamous Epithelial Cell Urine MODERATE #/LPF (NONE/RARE); Urine Culture Indicated YES
[2024-05-06 19:51] VITALS: BP 111/59; PULSE 77
[2024-05-10 08:17] LABS: BOX Test Reference Lab FIRELANDS
== END 2024-05-06 20:40 | disposition home or self-care (01) ==
PROVIDERS: Admitting Provider Obstetrics & Gynecology; Visit Provider Obstetrics & Gynecology
DX: O26.893 Other specified pregnancy related conditions, third trimester (principal); R10.9 Unspecified abdominal pain; N89.8 Other specified noninflammatory disorders of vagina; Z3A.28 28 weeks gestation of pregnancy
CPT/HCPCS: 36415; 76815; 76817; 81001; 84112; 87086; G0378; G0379

== ENCOUNTER 2024-06-29 14:05 | Outpatient (OUT) | payer OTHER, SELFPAY ==
--- NOTE | 2024-06-29 14:08 | US_ITS ---
[address] [address] Patient Name: SUJATHA RAMIREZ MRN: [id number] date: 2000 Sex: F Assigned Patient Location: US Current Patient Location: US Accession/Order Number: [id number] Exam Date: 06/29/2024 18:59 Report Date: 06/29/2024 19:02 At the request of: ROSA VIDAL Procedure: US OB growth Exam: Growth ultrasound. Reason for exam: Excessive growth. COMPARISON: Anatomy ultrasound 04/05/2024. TECHNIQUE: Transabdominal imaging of the gravid uterus was obtained. FINDINGS: Single live intrauterine is noted measuring 37 weeks 0 days by anatomic measurements. Appropriate growth by dating. position is cephalic. heart rate is 132 bpm. Estimated weight is 3009 g. DANK is normal at 14.06 cm. US/US OB growth IMPRESSION: Single live intrauterine 37 weeks 0 days by anatomic measurements. Appropriate growth by dating. Impression dictated by: Satnam Bergman Jr., D.O.06/29/2024 7:02 PM Dictation Location: [place] [address] Electronically authenticated by: [id number] Y Date: 06/29/2024 19:02
== END 2024-06-29 14:06 | disposition home or self-care (01) ==
LOC: US 14:05
PROVIDERS: Visit Provider Physician Assistant
DX: O36.63X0 Maternal care for excessive fetal growth, third trimester, not applicable or unspecified (principal); Z3A.37 37 weeks gestation of pregnancy
CPT/HCPCS: 76816

== ENCOUNTER 2024-07-04 14:37 | Outpatient (REF) | payer OTHER, SELFPAY | END 2024-07-04 14:38 | disposition home or self-care (01) | LOC: LAB 14:37 | PROVIDERS: Visit Provider Obstetrics & Gynecology | DX: Z34.93 Encounter for supervision of normal pregnancy, unspecified, third trimester (principal) | CPT/HCPCS: 36415; 87081 ==

== ENCOUNTER 2024-07-19 16:10 | Inpatient (IN) | payer OTHER, SELFPAY ==
[2024-07-19 16:41] VITALS: BP 127/67; PULSE 79
[2024-07-19 17:06] LABS: Bilirubin Urine NEGATIVE (NEGATIVE); Blood Urine NEGATIVE (NEGATIVE); Clarity Urine CLEAR (CLEAR); Color Urine LT. YELLOW (YELLOW); Glucose Urine UA NEGATIVE (NEGATIVE); Ketones Urine NEGATIVE (NEGATIVE); Leukocyte Esterase Urine TRACE (NEGATIVE); Nitrite Urine NEGATIVE (NEGATIVE); Protein Urine NEGATIVE (NEG/TRACE); Urobilinogen Urine 0.2 EU/dL (0.2-1.0)
[2024-07-19 17:08] LABS: Urine Microscopic Indicated YES
[2024-07-19 17:18] LABS: Bacteria Urine TRACE #/HPF (NONE SEEN); Cast Seen? NONE SEEN #/LPF (NONE SEEN); Crystals Seen? None Seen #/HPF (None Seen); Mucus Urine TRACE (NONE SEEN); RBC Urine NONE SEEN #/HPF (0-2); Squamous Epithelial Cell Urine FEW #/LPF (NONE/RARE); Urine Culture Indicated NO; WBC Urine 0-2 #/HPF (NONE SEEN)
[2024-07-19 18:21] LABS: Hematocrit 41.8 % (36.0-48.0); Mean Corpuscular HGB Conc 33.5 g/dL (29.9-35.2); Mean Corpuscular Hemoglobin 30.2 pg (26.7-34.0); Mean Corpuscular Volume 90.1 fL (81.0-99.0); Mean Platelet Volume 11.6 fL (9.5-13.5); Platelet Count 154 10^3/uL (150-450); Red Blood Count 4.64 10^6/uL (4.20-5.40); Red Cell Distribution Width 13.6 % (11.0-15.0); White Blood Count 12.9 10^3/uL (4.0-11.0)
[2024-07-19 18:34] LABS: Amphetamine Screen Urine NEGATIVE (NEGATIVE); Barbiturates Screen Urine NEGATIVE (NEGATIVE); Benzodiazepines Screen Urine NEGATIVE (NEGATIVE); Buprenorphine Screen Urine NEGATIVE (NEGATIVE); Cannabinoid Screen Urine NEGATIVE (NEGATIVE); Cocaine Screen Urine NEGATIVE (NEGATIVE); Methadone Screen Urine NEGATIVE (NEGATIVE); Methamphetamines Screen Urine NEGATIVE (NEGATIVE); Opiate Screen Urine NEGATIVE (NEGATIVE); Oxycodone Screen Urine NEGATIVE (NEGATIVE); Phencyclidine Screen Urine NEGATIVE (NEGATIVE); Tricyclic Antidepressant Urine NEGATIVE (NEGATIVE)
[2024-07-19 20:33] VITALS: TEMP 36.6
[2024-07-19 22:42] VITALS: BP 114/76; PULSE 90
[2024-07-19] MEDS: 0.9 % SODIUM CHLORIDE 1,000 ML 125 ML IV (22:49)
[2024-07-19] MEDS: OXYTOCIN/0.9 % SODIUM CHLORIDE 10 UNITS/500 ML PLAST..BAG 6 UNIT IV (23:01)
[2024-07-19 23:38] VITALS: BP 124/90; PULSE 102
[2024-07-20] VITALS (27 sets, daily range): BP systolic 98–149; BP diastolic 48–95; PULSE 78–117; TEMP 36.6–37.6
[2024-07-20] MEDS: 0.9 % SODIUM CHLORIDE 1,000 ML 125 ML IV (06:00)
[2024-07-20] MEDS: ROPIVACAINE HCL/PF 400 MG/200 ML PREMIX 8 MG EPIDURAL (06:39)
[2024-07-20] MEDS: 0.9 % SODIUM CHLORIDE 1,000 ML 1000 ML IV (10:11)
[2024-07-20] MEDS: OXYTOCIN/0.9 % SODIUM CHLORIDE 20 UNITS/1,000 ML PLAST..BAG 999 UNIT IV (11:40)
--- NOTE | 2024-07-20 11:53 | PM.OBPRCVD ---
Procedure Intrapartal events: None Induction method: per pitocin protocol Delivery augmentation: rupture of membranes and pitocin Delivery monitor: external FHT and external uterine Route of delivery: Episiotomy Description: none L&D Laceration Description: perineal - 2nd degree Delivery repair: Vicryl Anesthesia type: Epidural Disposition: floor Delivery date: 07/20/24 Gender: female presentation: vertex Placental delivery description: Spontaneous cord description: 3 Vessels
[2024-07-20] MEDS: IBUPROFEN 600 MG TABLET PO (14:29)
[2024-07-20] MEDS: BENZOCAINE/MENTHOL 85 GRAM SPRAY BOTTLE 1 APPLIC TOPICAL (18:59)
[2024-07-20] MEDS: GLYCERIN/WITCH HAZEL PADS 1 PAD TOPICAL (18:59)
[2024-07-20] MEDS: ACETAMINOPHEN 325 MG TABLET 650 MG PO (22:23)
[2024-07-21 00:10] VITALS: BP 135/67; PULSE 76; TEMP 36.9
[2024-07-21] MEDS: ACETAMINOPHEN 325 MG TABLET 650 MG PO ×2 (04:06→15:47)
[2024-07-21] MEDS: IBUPROFEN 600 MG TABLET PO ×2 (04:06→15:47)
[2024-07-21 06:43] LABS: Basophils Percent Auto 0.2 % (0.2-2.0); Eosinophils Absolute Auto 0.2 10^3/uL (0.0-0.7); Eosinophils Percent Auto 1.1 % (0.9-7.0); Hematocrit 30.3 % (36.0-48.0); Hemoglobin 10.5 g/dL (12.0-16.0); Immature Granulocytes Abs Auto 0.07 10^3/uL (0.00-0.03); Immature Granulocytes Pct Auto 0.5 % (0.0-0.5); Lymphocytes Percent Auto 14.8 % (20.5-60.0); Mean Corpuscular HGB Conc 34.7 g/dL (29.9-35.2); Mean Corpuscular Hemoglobin 30.7 pg (26.7-34.0); Mean Corpuscular Volume 88.6 fL (81.0-99.0); Mean Platelet Volume 11.3 fL (9.5-13.5); Monocytes Percent Auto 7.5 % (1.7-12.0); Neutrophils Absolute Auto 10.4 10^3/uL (1.4-6.5); Neutrophils Percent Auto 75.9 % (43.0-75.0); Platelet Count 159 10^3/uL (150-450); Red Blood Count 3.42 10^6/uL (4.20-5.40); Red Cell Distribution Width 13.7 % (11.0-15.0); White Blood Count 13.7 10^3/uL (4.0-11.0)
[2024-07-21 08:35] VITALS: PULSE 87; TEMP 36.4
[2024-07-21 08:46] VITALS: BP 112/55; PULSE 87
--- NOTE | 2024-07-21 09:32 | PM.OBPN ---
OB - PN: Subj Subjective Patient comments: no complaints [place] status: doing well feeding status: exclusively Exam Constitutional Vital Signs, click to edit/add: Last Vital Signs Temp 98.5 F 07/21/24 00:10 Pulse 87 07/21/24 08:46 BP 112/55 07/21/24 08:46 O2 Del Method Room Air 07/21/24 00:00 Common normals: no apparent distress, average body habitus, oriented x3, no limitations, healthy appearing, alert and well nourished General appearance: cooperative, comfortable, well kempt and well developed Orientation/consciousness: Yes awake, Yes oriented to person, Yes oriented to place and Yes oriented to time HENMT Common normals: normocephalic Head and scalp: normal to inspection and normocephalic Eye Common normals: EOMs intact bilaterally Neck & C-Spine Common normals: full ROM Lymph Lymphatic: no lymphadenopathy noted Chest Common normals: inspection of chest normal Respiratory Common normals: normal respiratory effort Effort & inspection: able to speak in complete sentences Auscultation: clear to auscultation bilaterally Cardio Common normals: regular rate and regular rhythm Rate: regular rate Rhythm: regular rhythm GI Inspection: normal to inspection Auscultation: normoactive bowel sounds Palpation: soft Common normals: no CVA tenderness Back & Pelvis Thoracic spine/upper back: normal to inspection Lumbar spine/lower back: normal to inspection Extremity Common normals: normal to inspection Neuro Common normals: oriented x3 Sensorium/orientation: awake, alert, oriented to person, oriented to place and oriented to time Psych Common normals: mental status grossly normal, thought process normal, cooperative, affect normal, speech normal, activity/motor behavior normal, denies hallucinations, denies homicidal ideation and denies suicidal ideation Appearance: grossly normal Attitude: calm Results Labs Labs: Short CBC 07/21/24 Range/Units 06:21 WBC 13.7 H (4.0-11.0) 10^3/uL Hgb 10.5 L (12.0-16.0) g/dL Hct 30.3 L (36.0-48.0) % Plt Count 159 (150-450) 10^3/uL Urinary Catheter Management Urinary Catheter Management Urethral: Cath placed during this visit: yes Urethral indwelling: No Insertion date: 07/20/24 Insertion time: 07:30 OB - PN: A/P Time Spent with Patient Time: Total time spent is greater than 50% in coordination of care (as documented) at patient's floor/unit and/or counseling patient: Total time spent with greater than 50% in coordination of care (as documented) at patient's floor/unit and/or counseling patient: less than 15 minutes
[2024-07-21] MEDS: DOCUSATE SODIUM 100 MG CAPSULE PO (20:45)
[2024-07-22 00:15] VITALS: BP 128/83; PULSE 94; TEMP 37.2
[2024-07-22] MEDS: IBUPROFEN 600 MG TABLET PO ×2 (00:15→10:32)
[2024-07-22] MEDS: GLYCERIN/WITCH HAZEL PADS 1 PAD TOPICAL (00:16)
[2024-07-22] MEDS: ACETAMINOPHEN 325 MG TABLET 650 MG PO (00:16)
--- NOTE | 2024-07-22 07:59 | P.OBPN_ITS ---
OB - PN: Subj Subjective Patient comments: no complaints and pain well controlled [place] status: doing well Exam Constitutional Vital Signs, click to edit/add: Last Vital Signs Temp 98.9 F 07/22/24 00:15 Pulse 94 H 07/22/24 00:15 Resp 16 07/21/24 08:35 BP 128/83 07/22/24 00:15 O2 Del Method Room Air 07/22/24 00:12 Documenting provider has reviewed patient's vital signs: yes Common normals: no apparent distress Cardio Common normals: regular rate and regular rhythm GI Common normals: Normal to inspection, nondistended, normoactive bowel sounds present Extremity Common normals: no clubbing, cyanosis or edema and no calf tenderness Urinary Catheter Management Urinary Catheter Management Urethral: Cath placed during this visit: yes Urethral indwelling: No Insertion date: 07/20/24 Insertion time: 07:30 OB - PN: A/P Plan - Vaginal Delivery day: 2 Plan: routine care, discharge home and follow up 6 weeks Time Spent with Patient Time: Total time spent is greater than 50% in coordination of care (as documented) at patient's floor/unit and/or counseling patient: Total time spent with greater than 50% in coordination of care (as documented) at patient's floor/unit and/or counseling patient: less than 15 minutes
[2024-07-22 10:29] VITALS: BP 118/80; PULSE 93; TEMP 36.8
[2024-07-22] MEDS: DOCUSATE SODIUM 100 MG CAPSULE PO (10:32)
== END 2024-07-22 13:45 | disposition home or self-care (01) | DRG 807 ==
PROVIDERS: Admitting Provider Obstetrics & Gynecology; Visit Provider Obstetrics & Gynecology
DX: O70.1 Second degree perineal laceration during delivery (principal); Z37.0 Single live birth; Z3A.39 39 weeks gestation of pregnancy; Z23 Encounter for immunization
CPT/HCPCS: 36415; 51702; 59050; 59410; 80307; 81001; 85025; 85027; 86850; 86900; 86901; J2795